=== PATIENT | male | born 1985 | race Caucasian/White ===

== ENCOUNTER 2020-06-22 08:07 | Outpatient (CLI) | payer SELFPAY ==
--- NOTE | 2020-06-22 08:00 | US_ITS ---
WS: [id number] RIGHT UPPER QUADRANT ULTRASOUND HISTORY: R10.11 - Right upper quadrant pain COMPARISON: None available. Liver: 17.2 cm in length. Liver is top normal size to slightly enlarged. Mild coarse echotexture. No mass or bile duct dilatation. Gallbladder: Mildly contracted gallbladder. Shadowing from the gallbladder consistent with stones. Ga llbladder does appear to be contracted. Patient was not nothing by mouth. CBD: 0.4 cm Pancreas: Poorly visualized. Right kidney: 11.0 cm in length. Normal size and echogenicity. No hydronephrosis or mass. Aorta and IVC: Unremarkable abdominal aorta and IVC. No ascites. US/US abdomen limited [id number] IMPRESSION: 1. Cholelithiasis within a slightly contracted gallbladder. 2. Mild hepatic steatosis.
== END 2020-06-22 08:08 | disposition home or self-care (01) ==
PROVIDERS: PCP Family Medicine; Visit Provider Nurse Practitioner Family
DX: R10.11 Right upper quadrant pain (principal); K80.20 Calculus of gallbladder without cholecystitis without obstruction; K76.0 Fatty (change of) liver, not elsewhere classified
CPT/HCPCS: 76705

== ENCOUNTER → 2020-07-01 10:36 | Outpatient (BNVA) | payer SELFPAY | PROVIDERS: PCP Family Medicine; Visit Provider Surgery | DX: K81.9 Cholecystitis, unspecified (principal); K82.9 Disease of gallbladder, unspecified; R10.11 Right upper quadrant pain | CPT/HCPCS: 80053; 85025 ==

== ENCOUNTER → 2020-08-05 09:38 | Outpatient (BNVA) | payer SELFPAY | PROVIDERS: PCP Family Medicine; Visit Provider Surgery | DX: Z20.822 Contact with and (suspected) exposure to COVID-19 (principal); K80.20 Calculus of gallbladder without cholecystitis without obstruction | CPT/HCPCS: 87635 ==

== ENCOUNTER 2020-08-10 09:41 | Day surgery (SDC) | payer SELFPAY ==
[2020-08-06 18:09] VITALS: BMI 40.6
[2020-08-10] VITALS (9 sets, daily range): BP systolic 128–158; BP diastolic 85–102; PULSE 60–85; RESP 16–18; TEMP 36.2–36.6; O2SAT 93–98
[2020-08-10] MEDS: sodium chloride 0.9% 1,000 ML 30 ML IV (10:28)
[2020-08-10] MEDS: acetaminophen 1,000 MG/100 ML PIGGYBACK 400 MG IV (10:29)
[2020-08-10] MEDS: heparin 5,000 unit/mL INJ 1 mL 3000 UNIT SUBCUT (10:32)
--- NOTE | 2020-08-10 12:11 | P.HP_ITS ---
Same Day Surgery H&P Indication for Procedure/HPI DATE OF PROCEDURE: August 10, 2020 CHIEF COMPLAINT/INDICATIONFOR SURGICAL PROCEDURE: Gallbladder issues PREOP DIAGNOSIS: Symptomatic cholelithiasis PLANNED PROCEDRUE: Operation Date: 08/10/20 11:45 Proposed Procedures p Laparoscopic [place]cyst[place] 19432 K80.20(Not Applicable) - Jt Cleveland MD This is a 34 years old gentleman morbidly obese with a current BMI of 41 and weighs 300 pounds presents to my office with history of nausea vomiting diarrhea and fatty dyspepsia. Patient was further worked up an ultrasound of the right upper quadrant was done that showed: 1. Cholelithiasis within a slightly contracted gallbladder. 2. Mild hepatic steatosis. Interim history 08/10/2020 Comes today for elective laparoscopic cholecystectomy as he was placed on liquid protein diet for 10 days to downsize the volume of the liver due to the history of hepatic steatosis ROS All systems have been reviewed negative except as per the above or per problem list Medications/Allergies* Home Medications Medication Instructions Recorded Confirmed Type omeprazole 20 mg PO DAILY 08/06/20 08/06/20 History Allergies/Adverse Reactions Allergy/AdvReac Type Severity Reaction Status Date / Time Penicillins Allergy Mild Unknown Verified 08/10/20 13:56 Current Medications: Generic Name Dose Route Start Last Admin Trade Name Freq PRN Reason Stop Dose Admin Sodium Chloride 1,000 mls @ 30 mls/hr 08/10/20 10:00 08/10/20 10:28 Sodium Chloride 0.9% IV 08/11/20 09:59 30 mls/hr .Q24H GABY Administration Pertinent History/Comorbid Conditions* Family History (Updated 07/01/20 @ 09:05 by Bella Zimmer LPN) Chronic kidney disease (CKD) Father Hypertension Father Social History Smoking and tobacco status: current every day smoker smokeless tobacco Smokeless tobacco user: chewing tobacco Smokeless tobacco details: 1 CAN PER DAY Alcohol intake: current Alcohol intake frequency: other Pertinent Exam Findings alert, oriented x 3, clear to auscultation bilaterally, regular rate & rhythm and procedure specific exam findings (Abdominal examination nontender nondistended soft, morbidly obese) Recommendations Surgery/Procedure today (Laparoscopic cholecystectomy possible open) Other Plans: Plan of care; After thorough history physical examination and reviewing the chart and images with my personal intrepreatation.I counseled the patient for laparoscopic cholecystectomy possible open, indications risks including but not limited injury to the common bile duct and/or other viscera,that may require potential future surgical interventions including but not limited to ERCP and or laparatomy that may include Hepatobiliary surgery.Benefits and alternatives all discussed with the patient, and patient did agree to proceed accordingly. All questions have been answered and all concerns have been addressed to patient's satisfaction. Rationale was carefully and clearly discussed with the patient.Appropriate informed consent have been reviewed and signed. Coding Level of Care Code Acute Assembling Inspector for Kevin Kulkarni
--- NOTE | 2020-08-10 13:24 | ANES.PREANE2 ---
Pre-Anesthetic Assessment Pre-Anesthetic Assessment: Height/Weight: Height 1.83 m Weight 136.078 kg Temp Pulse Resp BP Pulse Ox 97.8 F 63 16 149/102 98 08/10/20 10:12 08/10/20 10:12 08/10/20 10:12 08/10/20 10:12 08/10/20 10:12 Preop Diagnosis: Symptomatic cholelithiasis Proposed Procedure: Operation Date: 08/10/20 11:45 Proposed Procedures p [place]ar[place] [address]04 K80.20(Not Applicable) - Jt Cleveland MD Was Beta Kamlesh taken within 24 hours: N/A Was Clonidine taken within 24 hours: N/A Last intake: Intake Last Liquid Date 08/09/20 Last Liquid Time 21:30 Last Solid Date 08/09/20 Last Solid Time 21:30 Social: Social History: Tobacco (Chews) and No alcohol Exam: Pre-Anes Outpt Exam: alert, oriented x 3, clear to auscultation bilaterally and regular rate & rhythm Airway: Submandibular: WNL Cervical ROM: WNL MP: 2 Additional comments: Poor GI: GI: GERD Metabolic: Metabolic: Morbid obesity Anesthetic Plan: ASA status: 2 Anesthesia: General Risk of > 500 ml blood loss (7ml/kg in children): No Meds/Allergies Current Medications: Current Medications Generic Name Dose Route Start Last Admin Trade Name Freq PRN Reason Stop Dose Admin Sodium Chloride 1,000 mls @ 30 ml s/hr 08/10/20 10:00 08/10/20 10:28 Sodium Chloride 0.9% IV 08/11/20 09:59 30 mls/hr .Q24H GABY Administration PFSH Anesthesia PFSH: Family History Father Hypertension Chronic kidney disease (CKD) Social History Smoking and tobacco status: current every day smoker smokeless tobacco Smokeless tobacco user: chewing tobacco Smokeless tobacco details: 1 CAN PER DAY Alcohol intake: current Alcohol intake frequency: other Data Anesthesia Cardiac Studies: No Data to Display
[2020-08-10] MEDS: clindamycin 900 MG/50 ML PREMIX 100 MG IV (14:24)
[2020-08-10] MEDS: lidocaine 2% INJ 20 mL INJECTION (15:51)
--- NOTE | 2020-08-10 15:54 | P.OP_ITS ---
Operative Report Date of procedure: August 10, 2020 Pre-op Diagnosis: Symptomatic cholelithiasis Post-op diagnosis: other Post-op Diagnosis: Chronic calculus cholecystitis Procedure Done: Laparoscopic cholecystectomy Specimens removed/disposition: Gallbladder and contents Surgeon: Jt Cleveland Orthodontic Laboratory Technician: Surgical techMarija Medellin and Deedee Circulating nurses Marisela and Rosaura Bond Anesthesia: General (GETA CUTLET MAKER PORK Will Smart) Estimated blood loss (mL): 10 Condition: stable Disposition: same day Brief History: Symptomatic cholelithiasis. Full H&P and informed consent per chart Procedure: Patient was identified in the holding area and taken back to the operative suite, placed in supine position intubated by anesthesia . Time-out was done verifying the patient's name/date of /planned procedure and destination after the procedure, all were in agreement. SCDs confirmed to be functioning, preoperative antibiotics administered per protocol, and beta julio c protocol was confirmed. Patient was appropriately secured to the table, footboard was applied to the OR table, before prep and drape anesthesia was asked to tilt the table back and forth to make sure that the patient is appropriately secured and she was. Prep and drape of the abdomen was done under the usual sterile technique, followed by that supraumbilical skin incision,skin incision was done by a 15 blade knife, and stay sutures were applied to the fascia and Wooten trocar technique was used to enter the abdominal without injuring any abdominal viscera, started by low flow gas insufflation followed by a high flow, started with a 10 mm laparoscope and under direct vision there was no evidence of any injuries, the scope then switched to a 30? ,10 millimeter scope and under direct visualization 5 millimeter trocar was inserted in the epigastric region followed by two 5 mm trocars were inserted in the right upper quadrant that was done after injection of local lidocaine 2% at all incision sites. Gallbladder showed chronic calculus cholecystitis with adhesions with obvious larger stones Patient was then positioned in the head up and tilted to the left Ratcheted forceps were introduced into the lateral most 5mm port and was applied unto the fundus of the gallbladder cephalad and using Bullet forceps the infundibulum of the gallbladder was retracted laterally. Using [place] forceps then L-hook cautery to dissect the peritoneum overlying the Calot's triangle which was then opened medially and laterally until the cystic duct and the cystic artery were skeletonized. Dissection was carried along the body of the gallbladder and after ensuring critical view of safety was identfied. Cystic duct and cystic artery where seen connected to the gallbladder. Clips were applied on the cystic duct towards the common bile duct 1 towards the gallbladder then divided is in sharp scissors, 2 clips were then applied onto the cystic artery and 1 towards the gallbladder and divided by sharp scissors. Dissection was then carried along of the gallbladder from the gallbladder fos sa using cautery as well as sharp dissection with heat energy. The gallbladder then was dissected out from the gallbladder fossa totally , cholecystectomy was then achieved and was placed in an Endo Catch bag and then retrieved from the Wooten trocar site under direct visualization using a 5 mm 30? scope through the epigastric trocar, specimen was then passed to the circulating nurse to go for permanent pathology,irrigation and hemostasis was done to the gallbladder fossa after hemostasis was secured, final survey laparoscopy was done that showed no injuries. Suction irrigation was obtained The supraumbilical fascial defect was then closed using interrupted PDS sutures using a fascial closure device ;Mark Turcios under direct visualization Gas was allowed to deflate,Trocars were then taken out under direct vision there was no evidence of bleeding Specimen was passed to the circulating nurse for permanent pathology. No drains were placed and the supraumbilical incision as well as all trocar sites were closed by by 4-0 Monocryl to approximate the skin edges of the supraumbilical incision, dressing was applied in the form of Dermabond and the patient patient got extubated and was taken to recovery area in a stable condition. Count of sponges, needles and instruments were completed at the end of the procedure I was present for the whole entire procedure.
[2020-08-10] MEDS: fentaNYL 50 mcg/mL INJ 2mL IVP (16:04)
--- NOTE | 2020-08-10 16:10 | SUR.PHASEI ---
1553 PT TO PACU AWAKE CONFUSED TRYING TO GET OUT OF BED , YELLING (LET ME UP, GET THAT OFF MY FACE, I CANT BREATHE). PT REORIENTED AND PT C/I OF ABD PAIN YELLING (LET ME UP SO I CAN BREATHE) PT SITTING STRAIGHT UP IN BED SEE ANESTHESIA PAIN MED GIVEN AT BEDSIDE BY HARRIETT DHALIWAL. 1604 PT RESTLESS AND ANGRY WANTS NC OFF AND WANTS UP BECAUSE ( MY BELLY HURTS) PT CONTINUED TO BE REORIENTED SEE TAYLOR MED GIVEN , PT ABD SOFT WITH 4 SITES WITH BANDAIDS, D/I
--- NOTE | 2020-08-10 16:16 | SUR.PHASEI ---
PT SLEEPS IF NOT DISTURBED VSS RESP EVEN AND UNLABORED,
--- NOTE | 2020-08-10 17:01 | ANE.PACU2 ---
Inpatient post-anesthesia follow up: Airway intact: Yes Vital signs: Temperature 97.3 F Pulse Rate 68 Respiratory Rate 16 Blood Pressure 128/98 Pulse Oximetry 97 Oxygen Delivery Me thod Nasal Cannula Oxygen Flow Rate 2 Fraction of Inspir ed Oxygen Hydration adequate: Yes Nausea and vomiting: No Pain level: 2 Mental status: Baseline
== END 2020-08-10 17:20 | disposition home or self-care (01) ==
PROVIDERS: PCP Family Medicine; Visit Provider Surgery
PROC: 0FT44ZZ Resection of Gallbladder, Percutaneous Endoscopic Approach (ICD-10-PCS; CPT 47562; principal; 2020-08-10 11:45)
DX: K80.10 Calculus of gallbladder with chronic cholecystitis without obstruction (principal); K21.9 Gastro-esophageal reflux disease without esophagitis; E66.01 Morbid (severe) obesity due to excess calories; Z68.41 Body mass index [BMI] 40.0-44.9, adult; Z82.49 Family history of ischemic heart disease and other diseases of the circulatory system; F17.220 Nicotine dependence, chewing tobacco, uncomplicated
CPT/HCPCS: 47562; 88304; 96365; 96372; J0330; J1100; J1644; J2405; J2704; J3010; J3490; J7030

== ENCOUNTER 2022-05-30 09:43 | Emergency (ER) | payer BC, MEDICAID, SELFPAY ==
[2022-05-30 09:48] VITALS: BP 139/95; PULSE 84; RESP 18; TEMP 36.6; O2SAT 99
--- NOTE | 2022-05-30 09:56 | XR_ITS ---
WS: [id number] EXAMINATION: XR chest 1V portable [id number] REASON FOR EXAM: dyspnea/cough COMPARISON: None available. ORDER DATE: 05/30/2022 10:04 AM TECHNIQUE: A single, portable frontal chest x-ray was obtained. X-RAY FINDINGS: The lungs are clear. Pleural spaces are clear. No pleural effusions or pneumothorax. Cardiomediastinal silhouette is normal. No evidence for pulmonary edema. Soft tissue and osseous structures are unremarkable. No tubes or lines are present. XR/XR chest 1V portable [id number] IMPRESSION: Unremarkable frontal portable chest x-ray.
--- NOTE | 2022-05-30 10:03 | W.ED.DIZZY ---
HPI - Dizziness General: Chief Complaint: Dizziness Stated Complaint: states blood pressure issue Time Seen by Provider: 05/30/22 09:44 Source: patient Mode of arrival: ambulatory History of Present Illness: HPI Narrative: 36-year-old male presents emergency complaining of lightheadedness dizziness. He equates it to his his blood pressure medication has had several episodes the last couple months since he was started on it and February. He states he takes it every day. Denies chest pain or shortness of breath with standing for long period of time she will get lightheaded and dizzy resolves with sitting down. MD elicited complaint: dizziness and lightheadedness Pertinent past history: other (Hypertension) Severity: mild Description: lightheadedness History of similar symptoms: Yes Exacerbating factors: nothing Relieving factors: nothing Associated symptoms: Denies abnormal vaginal bleeding, change in hearing, chest pain, chills, cough, diaphoresis, ear discharge, ear pressure, fevers/chills, headache(s), malaise, nausea, nasal congestion, palpitations, rash, short of breath, syncope, tinnitus, vomiting or weakness Associated neuro symptoms: Deny confusion, difficulty speaking, dysphagia, diplopia, extremity weakness, facial numbness, facial weakness, gait changes, numbness in extremities or visual changes Review of Systems Const: Denies: fever(s), chills, fatigue, malaise or diaphoresis ENMT: Denies: ear discharge, change in hearing, tinnitus or nasal congestion Card: Denies: chest pain, palpitations or syncope Resp: Denies: dyspnea, productive cough or non-productive cough GI: Denies: abdominal pain, nausea, vomiting or dysphagia : Denies: flank pain, dysuria, urinary frequency or urinary urgency Skin/Breast: Denies: rash or pruritus Neuro: Reports: dizziness; Denies: headache(s), numbness in extremities or confusion PFSH ED PFSH: Medical History (Updated 05/30/22 @ 12:22 by Pineda Savage DO) HTN (hypertension) Surgical History (Updated 05/30/22 @ 10:07 by Pineda Savage DO) History of cholecystectomy -2020 Family History Father Hypertension Chronic kidney disease (CKD) Social History (Reviewed 11/25/20 @ 07:13 by JUSTIN Sullivan Smoking and tobacco status: current every day smoker (smokeless tobacco) smokeless tobacco Smokeless tobacco user: chewing tobacco Smokeless tobacco details: 1 CAN PER DAY Alcohol intake: current Alcohol intake frequency: other Physical Exam Const: GENERAL APPEARANCE: cooperative and comfortable ORIENTATION/CONSCIOUSNESS: Yes awake, Yes oriented to person, Yes oriented to place and Yes oriented to time HENMT: COMMON NORMALS: normocephalic, atraumatic and hearing grossly normal bilaterally HEAD & SCALP: normocephalic and atraumatic Resp: COMMON NORMALS: normal respiratory effort, No retractions, No use of accessory muscles and clear to auscultation bilaterally AUSCULTATION: clear to auscultation bilaterally Cardio: COMMON NORMALS: regular rate, regular rhythm and No murmurs present (Cardio) RATE: regular rate RHYTHM: regular rhythm GI: COMMON NORMALS: Soft to palpation and No hepatosplenomegaly present AUSCULTATION: Yes normoactive bowel sounds PALPATION: Yes Soft to palpation, No Tenderness to palpation present (GI), No Guarding due to palpation present (GI) and Yes No hepatosplenomegaly present Extremity: COMMON NORMALS: normal to inspection, capillary refill normal, no clubbing, cyanosis or edema, no calf tenderness and no pedal edema Neuro: SENSORIUM/ORIENTATION: Yes oriented to person, Yes oriented to place and Yes oriented to time Skin: COMMON NORMALS: no rashes or lesions noted GENERAL SKIN EXAM: no rashes or lesions noted Course Vital Signs: Vital signs: Vital Signs Temperature 97.9 F 05/30/22 09:48 Pulse Rate 83 05/30/22 12:29 Respiratory Rate 16 05/30/22 11:49 Blood Pressure 152/95 05/30/22 12:29 Pulse Oximetry 100 05/30/22 12:29 Oxygen Delivery Me thod 05/30/22 11:49 MDM - Dizziness Medical Decision Making Patient has mildly elevated blood pressure while in the emergency room I suspect he is getting some orthostasis with prolonged standing. I would not recommend stopping the amlodipine at this point. He has been asymptomatic since he is here. Can use meclizine as needed for dizziness and we will have him keep a blood pressure log at home follow-up with his primary care doctor reviewed the blood pressure log within the next 1 to 2 weeks. Continue amlodipine as previously prescribed Medical Records I reviewed the patient's medical records. Lab Data I reviewed the patient's lab results. 05/30/22 10:19 05/30/22 10:19 Radiology Impressions Chest X-Ray 05/30/22 09:56 IMPRESSION: Unremarkable frontal portable chest x-ray. Laboratory Results WBC 4.8 10^3/uL (4.0-10.0) 05/30/22 10:19 RBC 4.81 10^6/uL (4.1-5.3) 05/30/22 10:19 Hgb 14.7 g/dL (11.7-16.6) 05/30/22 10:19 Hct 44.4 % (42.0-52.0) 05/30/22 10:19 MCV 92.3 fl (80-94) 05/30/22 10:19 MCH 30.6 pg (28.0-34.0) 05/30/22 10:19 MCHC 33.1 g/dL (30.0-36.0) 05/30/22 10:19 RDW 13.0 % (12.1-15.1) 05/30/22 10:19 Plt Count 229 10^3/cmm (130-400) 05/30/22 10:19 MPV 10.0 fL (7.4-10.4) 05/30/22 10:19 Neut % (Auto) 54.4 % 05/30/22 10:19 Lymph % (Auto) 29.0 % 05/30/22 10:19 Ross % (Auto) 13.3 % 05/30/22 10:19 Eos % (Auto) 2.5 % 05/30/22 10:19 Baso % (Auto) 0.6 % 05/30/22 10:19 Neut # (Auto) 2.63 10^3/uL (1.8-7.7) 05/30/22 10:19 Lymph # (Auto) 1.4 10^3/uL (0.8-4.8) 05/30/22 10:19 Ross # (Auto) 0.6 10^3/uL (0.2-0.9) 05/30/22 10:19 Eos # (Auto) 0.1 10^3/uL (0.0-0.8) 05/30/22 10:19 Baso # (Auto) 0.0 10^3/uL (0.0-0.1) 05/30/22 10:19 Nucleated RBC % (auto) 0 % 05/30/22 10:19 Nucleated RBCs # 0.0 /100WBC 05/30/22 10:19 Sodium 138 mmol/L (136-145) 05/30/22 10:19 Potassium 4.0 mmol/L (3.5-5.1) 05/30/22 10:19 Chloride 99 mmol/L (98-107) 05/30/22 10:19 Carbon Dioxide 28 mmol/L (22-29) 05/30/22 10:19 Anion Gap 15.0 (5-19) 05/30/22 10:19 BUN 10 mg/dL (6-20) 05/30/22 10:19 Creatinine 1.0 mg/dL (0.7-1.2) 05/30/22 10:19 GFR Calculation 85.5 mL/min (90-130) L 05/30/22 10:19 Glucose 94 mg/dL (65-115) 05/30/22 10:19 Calculated Osmolality 285 mOsm/kg (285-295) 05/30/22 10:19 Calcium 9.3 mg/dL (8.5-10.5) 05/30/22 10:19 Total Bilirubin 0.6 mg/dL (0.15-1.2) 05/30/22 10:19 AST 26 U/L (0-40) 05/30/22 10:19 ALT 28 U/L (0-41) 05/30/22 10:19 Alkaline Phosphatase 81 U/L (40-130) 05/30/22 10:19 Total Protein 7.4 g/dL (6.6-8.7) 05/30/22 10:19 Albumin 4.7 g/dL (3.5-5.2) 05/30/22 10:19 Globulin 2.7 g/dL (1.3-4.6) 05/30/22 10:19 Discharge Plan Discharge Patient Disposition: Home Clinical Impression: HTN (hypertension) Condition: Stable Prescriptions: No Action amlodipine 5 mg Tablet 5 mg PO DAILY Discharge Orders: Discharge ED (Routine); Ordered 05/30/22 Ordered By: Pineda Savage Referrals: Jessica Saeed MD [Primary Care Provider] - Discharge Diet: Usual diet Discharge Activity: Increase activity as tolerated Activity Restrictions/Additional Instructions: You are seen today for hypertension and a complaint of dizziness. Her blood pressure is still mildly elevated. Its not unusual with patients on blood pressure medicines to stand for long periods of time to have episodes of orthostasis to whether blood pressure transiently dips to low. For now given your blood pressure in the emergency room is still elevated recommend he continue the same dose of medication follow-up with primary care doctor and reevaluate your blood pressure and your medications. In the interim until you see your doctor keep a blood pressure log and check your blood pressure once to twice a day. Bring this to your next doctor's appointment. Coding Level of Care Code ED Industrial Health And Safety Professor for Kevin Kulkarni
--- NOTE | 2022-05-30 10:05 | ECG_ITS ---
[facility] Test Date: 2022-05-30 Pat Name: Christopher Hawkins Department: Room: Gender: Male Weather Reporter: : 1985 Requested By: Pineda Valente Order Number: [id number] Shiloh MD: Susannah Rodriguez M.D. Measurements Intervals [place] Rate: 67 P: 41 IN: 152 QRS: 30 QRSD: 93 T: 48 QT: 374 QTc: 397 Interpretive Statements SINUS RHYTHM No previous ECG available for comparison Electronically Signed On 05-30-2022 23:07:27 CDT by Susannah Rodriguez M.D. [email or web address]
[2022-05-30 10:20] VITALS: BP 147/94; PULSE 89; RESP 16; O2SAT 97
[2022-05-30 10:21] VITALS: BP 143/86; BP 149/96; BP 153/95
[2022-05-30 10:26] LABS: Basophils % 0.6 %; Eosinophils # 0.1 10^3/uL (0.0-0.8); Eosinophils % 2.5 %; Hematocrit 44.4 % (42.0-52.0); Hemoglobin 14.7 g/dL (11.7-16.6); Lymphocytes # 1.4 10^3/uL (0.8-4.8); Mean Corpuscular HGB Conc 33.1 g/dL (30.0-36.0); Mean Corpuscular Hemoglobin 30.6 pg (28.0-34.0); Mean Corpuscular Volume 92.3 fl (80-94); Monocytes # 0.6 10^3/uL (0.2-0.9); Monocytes % 13.3 %; Neutrophils # 2.63 10^3/uL (1.8-7.7); Neutrophils % 54.4 %; Nucleated Red Blood Cells % 0 %; Platelet Count 229 10^3/cmm (130-400); Red Blood Count 4.81 10^6/uL (4.1-5.3); White Blood Count 4.8 10^3/uL (4.0-10.0)
[2022-05-30 10:41] LABS: Alanine Aminotransferase 28 U/L (0-41); Albumin Level 4.7 g/dL (3.5-5.2); Alkaline Phosphatase 81 U/L (40-130); Aspartate Amino Transferase 26 U/L (0-40); Blood Urea Nitrogen 10 mg/dL (6-20); Calcium 9.3 mg/dL (8.5-10.5); Carbon Dioxide 28 mmol/L (22-29); Chloride 99 mmol/L (98-107); Creatinine Clr Calc Pharmacy 133.2938; Globulin 2.7 g/dL (1.3-4.6); Glomerular Filtration Rate 85.5 mL/min (90-130); Glucose 94 mg/dL (65-115); Osmolality Calculated 285 mOsm/kg (285-295); Sodium 138 mmol/L (136-145); Total Bilirubin 0.6 mg/dL (0.15-1.2); Total Protein 7.4 g/dL (6.6-8.7)
[2022-05-30 11:49] VITALS: BP 152/93; PULSE 82; RESP 16; O2SAT 98
[2022-05-30 12:29] VITALS: BP 152/95; PULSE 83; O2SAT 100
== END 2022-05-30 12:30 | disposition home or self-care (01) ==
PROVIDERS: Emergency Provider Family Medicine; PCP Family Medicine
DX: I10 Essential (primary) hypertension (principal); F17.220 Nicotine dependence, chewing tobacco, uncomplicated
CPT/HCPCS: 71045; 80053; 85025; 93005; 99285